=== PATIENT | female | born 2000 | race African-American/Black ===

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

== ENCOUNTER 2022-07-15 23:12 | Emergency (ER) | payer MEDICAID ==
[~2022-07-15] VITALS: Ht 167.6 cm; Wt 113.6 kg
[2022-07-16 00:41] LABS: Urine Bacteria NONE SEEN /hpf (None Seen); Urine Blood Negative /uL (Negative); Urine Mucus FEW (None Seen); Urine WBC 15 /hpf (0 - 5)
[2022-07-16] MEDS ORDERED: NITR-87 PO (08:44)
[2022-07-16] MEDS ORDERED: PERCOT PO (08:44)
[2022-07-16 09:05] VITALS: BP 124/58
== END 2022-07-16 09:05 | disposition home or self-care (01) ==
LOC: ER 23:12
DX: N39.0 Urinary tract infection, site not specified (principal); N83.202 Unspecified ovarian cyst, left side; N83.201 Unspecified ovarian cyst, right side; Z79.899 Other long term (current) drug therapy
CPT/HCPCS: 74176; 81001

== ENCOUNTER 2022-10-17 00:41 | Emergency (ER) | payer MEDICAID ==
[~2022-10-17] VITALS: Ht 165.1 cm; Wt 118.9 kg
[~2022-10-17 00:41] MED LIST changes: +NITR-87 PO; +PERCOT PO
[2022-10-17 03:19] LABS: Urine Bacteria FEW /hpf (None Seen); Urine Blood Negative /uL (Negative); Urine Mucus FEW (None Seen); Urine Specific Gravity 1.027 (1.001-1.035); Urine WBC 46 /hpf (0 - 5)
[2022-10-17] MEDS ORDERED: CEPH-510 PO (04:05)
[2022-10-17 04:09] VITALS: BP 132/79
== END 2022-10-17 04:06 | disposition home or self-care (01) ==
LOC: ER 00:41
DX: N39.0 Urinary tract infection, site not specified (principal)
CPT/HCPCS: 81001